=== PATIENT | male | born 1945 | race Hispanic/Latino ===

== ENCOUNTER 2018-11-28 07:38 | Day surgery (SDC) | payer MEDICARE, BC ==
[2018-11-24 11:39] VITALS: BMI 25.0
[2018-11-28] MEDS ORDERED: Propofol 10 mg/ml Inj (20 ML) ONE (09:55)
[2018-11-28] MEDS ORDERED: Etomidate 20 mg/10ml Inj IV ONE (10:01)
[2018-11-28] MEDS ORDERED: Sodium Chloride 0.9% 1,000 ML IV SCH (10:45)
[2018-11-28 13:01] VITALS: BP 112/58; PULSE 56; RESP 16; TEMP 97.6; O2SAT 96
== END 2018-11-28 12:30 | disposition home or self-care (01) ==
LOC: ENDO 07:38
PROVIDERS: ATTEND Internal Medicine Gastroenterology
DX: K22.70 Barrett's esophagus without dysplasia (principal); K29.70 Gastritis, unspecified, without bleeding; K57.30 Diverticulosis of large intestine without perforation or abscess without bleeding; K64.8 Other hemorrhoids; K56.2 Volvulus; R19.4 Change in bowel habit
CPT/HCPCS: 43239; 45378; 88305; 88312; 88342; J2001; J2704; J3010; J7030; J7040